=== PATIENT | female | born 1990 | race Caucasian/White ===

== ENCOUNTER 2018-09-18 03:25 | Emergency (ER) | payer SELFPAY ==
[~2018-09-18] VITALS: Ht 162.6 cm; Wt 77.3 kg
[2018-09-18 04:08] LABS: BASOPHIL % 0.6 % (0-2); PLATELET COUNT 252 x10^3mcL (130-400)
[2018-09-18 04:09] LABS: RED CELL DISTRIBUTION WIDTH 16.5 % (11.5-14.5)
[2018-09-18 04:20] LABS: CALCIUM 8.4 mg/dL (8.5-10.1); CARBON DIOXIDE 24.7 mmol/L (21-32); CHLORIDE SERUM 106 mmol/L (98-107); CREATININE SERUM 0.7 mg/dL (0.6-1.0); GFR1 > 60 mL/min; GLUCOSE SERUM 103 mg/dL (74-106); POTASSIUM SERUM 3.9 mmol/L (3.5-5.1); SODIUM SERUM 142 mmol/L (136-145)
[2018-09-18 04:24] LABS: ALKALINE PHOSPHATASE 62 U/L (46-116); AMYLASE 56 U/L (25-115); BILIRUBIN TOTAL 0.17 mg/dL (0.20-1.00); LIPASE 85 IU/L (73-393); TOTAL PROTEIN, SERUM 6.7 g/dL (6.4-8.2)
[2018-09-18 04:25] LABS: ALBUMIN 3.1 g/dL (3.4-5.0)
[2018-09-18 04:37] LABS: ALT/SGPT 24 U/L (14-59); AST/SGOT 10 U/L (15-37)
[2018-09-18 05:57] VITALS: BP 105/64
== END 2018-09-18 05:57 | disposition home or self-care (01) ==
LOC: ED 03:25
PROVIDERS: Emergency Medicine
DX: K80.20 Calculus of gallbladder without cholecystitis without obstruction (principal)
CPT/HCPCS: C9113; J1885; J2405; J7030; Q0092